=== PATIENT | male | born 1960 | race Caucasian/White ===

== ENCOUNTER 2018-10-26 10:34 | Outpatient (CLI) | payer OTHER ==
[~2018-10-26] VITALS: Ht 188 cm; Wt 75.0 kg
--- NOTE | ~2018-10-26 | HEMODYNAMI ---
PATIENT:CHANDRAKANT GERMAN MEDICAL RECORD: [id number] : 56 LOCATION:D.CAT ADMISSION DATE: 10/26/18 Generatedon:10/26/201813:16 Patient name: CHANDRAKANT GERMAN Patient #: [id number] SSN: : 1960 Date of study: 10/26/2018 Page: Of Hemodynamic Procedure Report Patient Data Patient Demographics Procedure consent was obtained First Name: CHANDRAKANT Gender: Male Last Name: MONSERRAT : 1960 Patient #: [id number] Age: 58 year(s) Race: Unknown Additional ID: [id number] Contact details [address]: [address] [place] [address] State: [place] City: [place] Zip code: [address] Past Medical History Allergies: No known allergies Admission Admission Data Admission Date: 10/26/2018 Admission Time: 10:34 Admit Source: Other Lab Results Lab Result Date: 10/26/2018 Lab Result Time: 11:00 Biochemistry Name Units Result Min Max BUN mg/dl 17 --(---*)-- 7 18 Creatinine mg/dl 1.1 --(--*-)-- 0.6 1.3 CBC Name Units Result Min Max Hematocrit % 44 --(*---)-- 42 54 Hemoglobin g/dl 14.7 --(-*--)-- 13.5 17.5 Procedure Procedure Types Cath Procedure Peripheral Cath Diagnostic Procedure Systems Test Engineer Peripheral Procedures Zafde-Nurihmg-Vje-Off Procedure Description Procedure Date Procedure Date: 10/26/2018 Procedure Start Time: 13:05 Procedure End Time: 13:15 Procedure Staff Name Function Lazaro Gilman MD Performing Physician Son Madsen RT Monitor Ryan Blankenship RT Scrub Evie Valentin RN Nurse Gurpreet Perez RN Work Study Student Procedure Data Cath Procedure Fluoroscopy Diagnostic fluoroscopy Total fluoroscopy Time: 1.1 time: 1.1 min min Diagnostic fluoroscopy Total fluoroscopy dose: 86 dose: 86 mGy mGy Contrast Material Contrast Material Type Amount (ml) Isovue 300 91 Entry Location Entry Primary Successful Side Size Upsize Upsize Entry Closure Succes sful Closure Location (Fr) 1 (Fr) 2 (Fr) Remarks Device Remarks Femoral Right 5 Fr Exoseal artery Estimated blood loss: 5 ml Diagnostic catheters Device Type Used For End Catheter Placement DIAGNOSTIC UF 5Fr Procedure catheter ([id number]) Procedure Complications No complications Procedure Medications Medication Administration Route Dosage 0.9% NaCl I.V. 100 ml/hr Oxygen etCO2 Nasal cannula 2 l/min Lidocaine 2% added to field 20 Heparin Flush Bag added to field 2 bags (1000units/500ml NS) Versed I.V. 2 mg Fentanyl I.V. 50 mcg Versed I.V. 1 mg Fentanyl I.V. 25 mcg Hemodynamics Rest HGB: 14.7 (g/dl) Heart Rate: 85 (bpm) Snapshots Pre Cath Intra NCS Post Cath Vital Signs Time Heart Resp SPO2 etCO2 NIBP (mmHg) Rhythm Pain Sedation Rate (ipm) (%) (mmHg) Status Level (bpm) 12:46:06 86 15 99 37 156/90(140) NSR 0 (11) 10(A) , No pain 12:50:22 84 18 98 40.8 145/84(112) NSR 0 (11) 10(A) , No pain 12:54:33 83 14 98 36.2 127/78(105) NSR 0 (11) 10(A) , No pain 12:58:50 76 19 99 36.3 129/75(103) NSR 0 (11) 10(A) , No pain 13:03:04 75 12 99 28.7 126/77(96) NSR 0 (11) 10(A) , No pain 13:07:14 79 12 99 26.4 120/87(103) NSR 0 (11) 10(A) , No pain 13:11:27 75 13 99 17.3 120/69(102) NSR 0 (11) 10(A) , No pain 13:15:39 77 13 99 40.8 123/73(95) NSR 0 (11) 10(A) , No pain Medications Time Medication Route Dose Verified Delivered Reason Notes Eff ectiveness by by 12:45:52 0.9% NaCl I.V. 100 Lazaro Evie used for ml/hr Mukul Valentin lift mechanic 12:45:58 Oxygen etCO2 2 Lazaro Evie used for Nasal l/min Mukul Valentin procedure cannula RN 12:46:04 Lidocaine 2% added 20ml Lazaro Lazaro for local to vial Mukul Gilman MD anesthetic field 12:46:08 Heparin Flush added 2 Lazaro Lazaro used for Bag to bags Mukul Gilman MD procedure (1000units/500ml field NS) 13:01:07 Versed I.V. 2 mg Lazaro Evie for Mukul Valentin sedation RN 13:01:13 Fentanyl I.V. 50 Lazaro Evie for mcg Mukul Valentin sedation RN 13:07:32 Versed I.V. 1 mg Lazaro Evie for Mukul Valentin sedation RN 13:07:36 Fentanyl I.V. 25 Lazaro Evie for mcg Mukul Valentin sedation precision machine operator Log Time Note 12:35:45 Informed consent obtained and on chart 12:36:11 Admit Source: Other 12:36:41 Diagnostic Cath status Elective 12:36:43 Gurpreet Perez RN sent for patient. Start room use. 12:36:44 Time tracking: Regular hours (M-F 7:00 - 5:00) 12:36:48 Plan of Care:Hemodynamics will remain stable., Cardiac rhythm will remain stable., Comfort level will be maintained., Respiratory function will remain adequate., Patient/ family verbilizes understanding of procedure., Procedure tolerated without complication., Recovers from procedure without complications.. 12:37:05 H&P Date Dictated: 10/14/2018 Within 30 days and on chart., H&P Addendum completed by physician on day of procedure. (MUST COMPLETE FOR ALL OUTPATIENTS). 12:38:30 Patient allergic to No known allergies 12:38:57 Lab Result : BUN 17 mg/dl 12:38:57 Lab Result : Hemoglobin 14.7 g/dl 12:38:57 Lab Result : Creatinine 1.1 mg/dl 12:38:57 Lab Result : Hematocrit 44 % 12:39:00 Lab results completed and on chart. 12:40:50 Patient received from Pre/Post Procedure Room to CCL 1 Alert and oriented. Tansferred to table in Supine position. 12:40:51 Warm blankets applied, and toya hugger turned on for patient comfort. 12:40:52 Correct patient and procedure confirmed by team. 12:40:52 ECG and BP/O2 sat monitors applied to patient. 12:40:53 Pre-procedure instructions explained to patient. 12:40:54 Pre-op teaching completed and patient verbalized understanding. 12:40:55 Family in waiting room. 12:40:58 Patient NPO since Breakfast. 12:44:17 Vital chart was started 12:45:52 0.9% NaCl 100 ml/hr I.V. was administered by Evie Valentin RN; used for procedure; 12:45:58 Oxygen 2 l/min etCO2 Nasal cannula was administered by Evie Valentin RN; used for procedure; 12:46:04 Lidocaine 2% 20ml vial added to field was administered by Lazaro Gilman MD; for local anesthetic; 12:46:08 Heparin Flush Bag (1000units/500ml NS) 2 bags added to field was administered by Lazaro Gilman MD; used for procedure; 12:53:29 Baseline sample Acquired. 12:53:32 Rhythm: sinus rhythm 12:53:34 Full Disclosure recording started 12:53:37 Is the patient allergic to Iodine/contrast media? No. 12:53:38 Is patient on blood thinner?No 12:54:02 Patient diabetic? No. 12:54:10 Previous problem with sedation/anesthesia? No ? 12:54:12 Snore? Yes 12:54:13 Sleep apnea? No 12:54:13 Deviated septum? No 12:54:14 Opens mouth fully? Yes 12:54:14 Sticks out tongue? Yes 12:54:16 Airway obstruction? No ? 12:54:19 Dentures? No ? 12:54:24 Pre procedure: right dorsailis pedis pulse 2+ Normal; easily identifiable; not easily obliterated 12:54:27 Pre procedure: left dorsailis pedis pulse Doppler 12:54:29 Patient pain scale 0/10 ?. 12:54:42 IV patent on arrival in left forearm with 0.9% NaCl at [facility]. 12:55:32 Bilateral groins area was prepped with chlora-prep and draped in sterile fashion 12:55:34 Alarms reviewed by R. N. 12:55:34 Sharps counted by scrub and verified by R.N. 12:56:55 ACIST Syringe (53085) opened to sterile field. 12:56:55 Bag Decanter (2002S) opened to sterile field. 12:56:56 Medline Cath Pack ([id number]) opened to sterile field. 12:56:57 ACIST Hand Control (08510) opened to sterile field. 12:56:57 ACIST Manifold (98133) opened to sterile field. 12:56:59 Tegaderm 4 x 4 (1626W) opened to sterile field. 12:57:00 SHEATH 5FR Lafitte ([id number]) opened to sterile field. 12:57:01 DIAGNOSTIC WIRE .035 260cm J wire (969354) opened to sterile field. 12:58:20 Physician arrived 12:58:20 --------ALL STOP TIME OUT------ 12:58:21 Final Timeout: patient, procedure, and site verified with staff and physician. All members of the team are in agreement. 12:58:22 Bilateral groins site verified by team. 12:58:25 Physical assessment completed. ASA score P 2 - A patient with mild systemic disease as per Lazaro Gilman MD. 12:58:27 Sedation plan: IV Moderate Sedation Medication:Versed, Fentanyl 12:59:54 Zero performed for pressure channel P1 13:01:07 Versed 2 mg I.V. was administered by Evie Valentin RN; for sedation; 13:01:13 Fentanyl 50 mcg I.V. was administered by Evie Valentin RN; for sedation; 13:04:55 Procedure started. 13:05:01 Local anesthetic to right femoral artery with Lidocaine 2% by Lazaro Gilman MD.INITIAL ACCESS ONLY 13:07:07 A 5 Fr sheath was inserted into the Right Femoral artery 13:07:32 Versed 1 mg I.V. was administered by Evie Valentin RN; for sedation; 13:07:36 Fentanyl 25 mcg I.V. was administered by Evie Valentin RN; for sedation; 13:08:08 A DIAGNOSTIC UF 5Fr catheter ([id number]) was advanced over the wire and used for Procedure. 13:08:58 Abdominal angiogram w/ runoff was performed. 13:10:03 Left leg runoff performed. 13:10:59 Right leg runoff performed. 13:11:03 EXOSEAL 5Fr (EX500) opened to sterile field. 13:12:43 Catheter removed. 13:12:57 Sheath removed intact; hemostasis achieved with Exoseal to the Right Femoral artery. 13:12:59 Procedure ended.(Physican Out) 13:14:06 Fluoroscopy time 01.10 minutes. 13:14:11 Flurop Dose total: 86 13:14:11 Fluoroscopy dose: 86 mGy 13:14:16 Contrast amount:Isovue 300 91ml. 13:14:18 Sharps counted by scrub and verified by R.N. 13:14:18 Insertion/operative site no bleeding no hematoma. 13:14:21 Post-op/insertion site Right Femoral artery dressed using a 4 x 4 and Tegaderm. 13:14:25 Post right femoral artery:stable, soft, clean and dry 13:14:26 Post Procedure Pulses reassessed and unchanged 13:14:28 Post-procedure physical assessment completed. ASA score P 2 - A patient with mild systemic disease as per Lazaro Gilman MD. 13:14:30 Post procedure rhythm: unchanged. 13:14:32 Estimated blood loss: 5 ml 13:14:33 Post procedure instruction explained to patient.Patient verbalizes understanding. 13:14:34 Patient needs reinforcement of post procedure teaching. 13:15:19 Procedure and supply charges have been captured, reviewed, submitted and are correct. 13:15:21 Procedure Complication : No complications 13:15:23 Vital chart was stopped 13:15:23 See physician's report for complete and final results. 13:15:24 Report given to Pre/Post Procedure Room. 13:15:26 Patient transfered to Pre/Post Procedure Room with Stretcher. 13:15:29 Procedure ended. 13:15:29 Full Disclosure recording stopped 13:15:32 End room use (Document Last) Device Usage Item Name Manufacture Quantity Catalog Hospital Part Current Minimal L ot# / Number Charge Number Stock Stock Serial# Code ACIST Acist 1 27693 [id number] 152788 138410 20 Syringe Medical (29084) Systems Inc Bag Microtek 1 909837 42722 458879 5 Decanter Medical Inc. () Medline Medline 1 [id number] 670115 17980 092352 5 Cath Pack ([id number]) ACIST Hand Acist 1 07014 955361 604066 676247 5 Control Medical (48887) Systems Inc ACIST Acist 1 87596 296092 676840 171618 5 Manifold Medical (93163) Systems Inc Tegaderm 4 3M 1 1626W 622170 587681 125252 5 x 4 (1626W) SHEATH 5FR Terumo 1 [id number] 752342 227752 355001 5 Lafitte (IBV670) DIAGNOSTIC [facility] Chris 1 000154 755727 001658 486088 30 WIRE .035 260cm J wire (214862) DIAGNOSTIC Cardinal 1 [id number] 592590 013877 116668 10 UF 5Fr Health catheter ([id number]) EXOSEAL 5Fr Cardinal 1 EX500 367552 988529 670221 10 (EX500) Health Signature Audit Melbeta Stage Time Signature Unsigned Intra-Procedure 10/26/2018 Son Madsen 1:16:45 PM RT(R) Signatures Monitor : Son Madsen RT Signature : Date : Time : [id number] [place] [address]
[2018-10-26] MEDS ORDERED: ZESTORETIC 20-1 EACH PO (10:58)
[2018-10-26 11:04] VITALS: BP 187/94; Ht 188 cm; Wt 75.0 kg
[2018-10-26 11:28] LABS: ANION GAP 12.8 mmol/L (8-16); CARBON DIOXIDE 27.7 mmol/L (21.0-32.0); CREATININE - SERUM 1.1 mg/dL (0.6-1.3); POTASSIUM - SERUM 3.5 mmol/L (3.5-5.1)
[2018-10-26 11:32] LABS: BASOPHILS 0.4 % (0-2); EOSINOPHILS 1.4 % (0-7); HEMOGLOBIN 14.7 g/dL (13.5-17.5); IMMATURE GRANULOCYTES 0.1 % (0-5); LYMPHOCYTES 22.3 % (15-50); MCHC 33.4 g/dL (31.0-37.0); MCV 92.8 fL (80.0-100.0); MONOCYTES 5.4 % (2-11); NEUTROPHILS 70.4 % (40-80); PLATELET COUNT 236 10x3/uL (130-400); RBC 4.74 10x6/uL (4.20-6.10); RDW 12.2 % (11.5-14.5); WBC 10.5 10x3/uL (4.8-10.8)
--- NOTE | 2018-10-26 13:45 | NUR ---
RIGHT GROIN DRESSING C/D/I. NO S/S OF HEMATOMA NOTED. RIGHT PEDAL PULSE PALPABLE.
--- NOTE | 2018-10-26 14:15 | NUR ---
RIGHT GROIN DRESSING C/D/I. NO S/S OF HEMATOMA NOTED. VSS.
--- NOTE | 2018-10-26 14:30 | NUR ---
HEAD OF BED INC TO 30 DEGREES. RIGHT GROIN DRESSING C/D/I. NO S/S OF HEMATOMA NOTED. PT SET UP WITH SANDWICH TRAY.
--- NOTE | 2018-10-26 14:50 | NUR ---
LEFT FA PIV D/C'D WITH CATH TIP INTACT. PT TOLERATED WELL. INSTRUCTED TO GET UP AND DRESSED. FAMILY AT BEDSIDE FOR ASSISTANCE.
--- NOTE | 2018-10-26 15:05 | NUR ---
DISCUSSED DISCHARGE INSTRUCTIONS WITH PT AND PT'S FAMILY. THEY VOICED UNDERSTANDING. RIGHT GROIN DRESSING C/D/I. NO S/S OF HEMATOMA NOTED.
--- NOTE | 2018-10-26 15:20 | NUR ---
PT TAKEN TO RESTROOM AND VOIDED WITHOUT DIFFICULTY. TAKEN OUT TO VEHICLE BY WHEELCHAIR. NO S/S OF DISTRESS NOTED.
== END 2018-10-26 15:20 | disposition home or self-care (01) ==
LOC: D.CATH 10:34
PROVIDERS: Internal Medicine Cardiovascular Disease
DX: I70.213 Atherosclerosis of native arteries of extremities with intermittent claudication, bilateral legs (principal); Z01.812 Encounter for preprocedural laboratory examination